=== PATIENT | male | born 1980 | race Caucasian/White ===

== ENCOUNTER → 2021-05-01 | Outpatient (REF) ==
[~2021-05-01] MED LIST: ADVAIR 250/28 DISKUS IH; ALLEGRA 180MG180 MG PO; CETIRIZINE; CLARITIN; CLARITIN 1010 MG/TAB PO; COMBIVENT INH14.7 GM IH; IBUPROFEN; IMITREX100 MG PO; LEXAPRO 10MG10 MG PO; LISINOPRIL2.5 MG PO; LORTAB 5/500 501 TAB PO; NASONEX SPRAY; NOVLOG; PREVALITE4 GM/5.5 G PO; PRIL40 PO; PROAIR HFA0.09 MG/AC IH; SINGULAIR 110 MG/TAB PO; TOPAMAX 100MG100 M1 PO; TOPAMAX50 MG PO; TYLENOL 500MG500 MG PO; ULTRAM 50MG TAB50 MG PO; antibiotics
[2021-05-01 21:06] LABS: ALBUMIN 4.3 gm/dL (3.5-5.0); BILIRUBIN,TOTAL 1.5 mg/dL (0.0-1.0); CALCIUM 9.4 mg/dL (8.4-10.2); CHOLESTEROL RISK RATIO 3.1; CREATININE, serum 0.98 (0.66-1.25); POTASSIUM 5.3 mmol/L (3.4-5.0); TOTAL PROTEIN 7.7 gm/dL (6.4-8.2)
== END ==
LOC: ZLAB.WCH 20:35
PROVIDERS: Family Medicine
DX: Z01.89 Encounter for other specified special examinations (principal)